=== PATIENT | female | born 1970 ===

== ENCOUNTER 2017-08-06 07:50 | Outpatient (CLI) | payer OTHER | END 2017-08-06 08:02 | disposition home or self-care (01) | LOC: SONOGRAMA 07:50 | DX: C73 Malignant neoplasm of thyroid gland (principal) ==

== ENCOUNTER 2018-09-18 13:22 | Outpatient (CLI) | payer OTHER | END 2018-09-18 13:23 | disposition home or self-care (01) | LOC: SONOGRAMA 13:22 → MAMO-SONO 14:45 | DX: C73 Malignant neoplasm of thyroid gland (principal) ==

== ENCOUNTER 2018-09-27 08:19 | Outpatient (CLI) | payer OTHER | END 2018-09-27 09:49 | disposition home or self-care (01) | LOC: MAMO-SONO 08:19 | DX: N63.10 Unspecified lump in the right breast, unspecified quadrant (principal); N63.20 Unspecified lump in the left breast, unspecified quadrant; Z12.31 Encounter for screening mammogram for malignant neoplasm of breast ==

== ENCOUNTER 2019-08-21 11:02 | Outpatient (CLI) | payer OTHER | END 2019-08-21 11:21 | disposition home or self-care (01) | LOC: SONOGRAMA 11:02 | DX: C73 Malignant neoplasm of thyroid gland (principal) ==

== ENCOUNTER 2021-05-03 07:12 | Outpatient (CLI) | payer OTHER | END 2021-05-03 07:15 | disposition home or self-care (01) | LOC: NUCLEAR 07:12 | DX: M06.09 Rheumatoid arthritis without rheumatoid factor, multiple sites (principal) | CPT/HCPCS: 78315; A9503 ==

== ENCOUNTER 2021-08-29 11:01 | Outpatient (CLI) | payer OTHER | END 2021-08-29 11:12 | disposition home or self-care (01) | LOC: SONOGRAMA 11:01 | PROVIDERS: ATTEND Internal Medicine Sports Medicine | DX: C73 Malignant neoplasm of thyroid gland (principal) ==

== ENCOUNTER 2023-08-20 10:39 | Outpatient (CLI) | payer OTHER | END 2023-08-20 10:50 | disposition home or self-care (01) | LOC: SONOGRAMA 10:39 | PROVIDERS: ATTEND Internal Medicine Sports Medicine | DX: C73 Malignant neoplasm of thyroid gland (principal) ==